=== PATIENT | male | born 1970 | race Hispanic/Latino ===

== ENCOUNTER 2025-09-04 11:29 | Emergency (ER) | payer OTHER, SELFPAY ==
[2025-09-04] MEDS ORDERED: HYDROcodone/Acetaminophen 10/325 mg Tablet ONE (12:33)
== END 2025-09-04 13:09 | disposition home or self-care (01) ==
LOC: ERS 11:29
DX: L08.9 Local infection of the skin and subcutaneous tissue, unspecified (principal); E11.9 Type 2 diabetes mellitus without complications
CPT/HCPCS: 99283